=== PATIENT | female | born 1980 | race Caucasian/White ===

== ENCOUNTER 2016-11-20 06:37 | Emergency (ER) | payer MEDICAID ==
[~2016-11-20] VITALS: Ht 175.3 cm; Wt 61.1 kg
[~2016-11-20 06:37] MED LIST: HYDR-3533 PO; ZOFR4TAB3 SL; ZOLP10TA3 PO
[2016-11-20 06:47] VITALS: BP 115/56; PULSE 86; RESP 16; TEMP 97.6; O2SAT 99
[2016-11-20] MEDS ORDERED: SODIUM CHLOR 0.9% 1000 ML INJ 1,000 ML IV SCH (06:58)
[2016-11-20] MEDS ORDERED: SODIUM CHLORIDE 0.9% FLUSH 5 ML FLUSH IVF PRN (07:00)
[2016-11-20] MEDS ORDERED: ONDANSETRON HCL 4 MG/2 ML VIAL IVP ONE (07:00)
[2016-11-20] MEDS ORDERED: MORPHINE SULFATE 4 MG/ML INJ IV PUSH ONE (07:00)
[2016-11-20 07:21] LABS: AUTOMATED NEUTROPHIL # 5.1 TH/MM3 (1.8-7.7); BASOPHIL # 0.2 TH/MM3 (0-0.2); BASOPHIL % 3.1 % (0.0-2.0); EOSINOPHIL % 0.8 % (0.0-4.0); HEMO FLAGS DIFF FINAL; LYMPH % 7.1 % (9.0-44.0); LYMPHOCYTE # 0.4 TH/MM3 (1.0-4.8); MEAN CELL VOLUME 93.8 FL (80.0-100.0); MEAN CORPUSCULAR HEMOGLOBIN 32.3 PG (27.0-34.0); MEAN CORPUSCULAR HGB CONC 34.5 % (32.0-36.0); MONO % 5.6 % (0.0-8.0); NEUT % 83.4 % (16.0-70.0); PLATELET COUNT 254 TH/MM3 (150-450); RED BLOOD COUNT 3.94 MIL/MM3 (4.00-5.30); RED CELL DISTRIBUTION WIDTH 11.4 % (11.6-17.2)
--- NOTE | 2016-11-20 07:25 | PD ---
HPI . Abdominal pain Chief Complaint: Abdominal Pain Time Seen by Provider: 06:51 Travel History International Travel<30 days: No Contact w/Intl Traveler<30days: No Traveled to known affect area: No History of Present Illness HPI Patient presents with the acute onset of lower abdominal pain and bloating, onset about 5 PM last night. It is associated with nausea and vomiting. She states that her pain is increased with urination. She states that the pain is radiating into her legs. She reports a previous history of ovarian cyst and states that the pain is similar. Her medical history is significant for cervical cancer, previous right oophorectomy and previous left dermoid cyst. She states that she was seen by her produce service team member on about November 01 and had an ultrasound that showed a simple cyst of the left ovary. PFSH Past Medical History Asthma: Yes Anxiety: Yes Depression: Yes Cancer: Yes (Ovarian, cervical ) Diabetes: No Diminished Hearing: No Gastrointestinal Disorders: Yes (IBS) Musculoskeletal: Yes (Herniated disc/chronic back problems) Reproductive: Yes (Pulp removal) Immunizations Current: Yes Migraines: Yes Radiation Therapy: Yes Tetanus Vaccination: > 5 Years Influenza Vaccination: No ?: Unknown LMP: Stopped Depo Apr./no period yet : 2 Para: 1 : 1 Ovarian Cysts: Yes Dilation and Curettage (D&C): Yes Past Surgical History Gynecologic Surgery: Yes ((R) ovary/fallopian tube) Other Surgery: Yes (Breast augmentation/right lumpectomy ) Social History Alcohol Use: Yes Tobacco Use: No Substance Use: No Allergies-Medications (Allergen,Severity, Reaction): Coded Allergies: No Known Allergies (Verified , 11/20/16) Reported Meds & Prescriptions Reported Meds & Active Scripts Active Phenergan (Promethazine HCl) 25 Mg Tab 25 Mg PO Q6H PRN Ultram (Tramadol HCl) 50 Mg Tab 50 Mg PO Q4H PRN Ibuprofen 800 Mg Tab 800 Mg PO Q8H PRN Review of Systems Except as stated in HPI: all other systems reviewed are Neg General / Constitutional: Positive: Other (body feels like it's on fire) Gastrointestinal: Positive: Nausea, Vomiting, Abdominal Pain, No: Diarrhea Genitourinary: No: Urgency, Frequency, Dysuria (urination causes increased abdominal pain), Discharge Musculoskeletal: Positive: Myalgias Physical Exam Narrative GENERAL: Patient is lying on her left side in position. She appears to have pain with movement. SKIN: Warm and dry. HEAD: Atraumatic. Normocephalic. EYES: Pupils equal and round. ENT: No nasal bleeding or discharge. Mucous membranes pink and moist. NECK: Trachea midline. Neck is supple. CARDIOVASCULAR: Regular rate and rhythm. Heart sounds are normal. RESPIRATORY: No accessory muscle use. Lungs are clear with full air movement throughout. GASTROINTESTINAL: Abdomen soft. Diffuse lower abdominal tenderness. Nondistended. Bowel sounds are normal. MUSCULOSKELETAL: No obvious deformities. No edema. NEUROLOGICAL: Awake and alert. No obvious cranial nerve deficits. Motor grossly within normal limits. Normal speech. PSYCHIATRIC: Appropriate mood and affect; insight and judgment normal. Data Data Last Documented VS Vital Signs Date Time Temp Pulse Resp B/P Pulse Ox O2 Delivery O2 Flow Rate FiO2 11/20/16 10:15 16 11/20/16 10:13 80 98/50 98 Room Air 11/20/16 06:47 97.6 Orders Basic Metabolic Panel (Bmp) (11/20/16 06:58) Complete Blood Count With Diff (11/20/16 06:58) Urinalysis - C+S If Indicated (11/20/16 06:58) Ct Abd/Pel W Iv Contrast(Rout) (11/20/16 06:58) Iv Access Insert/Monitor (11/20/16 06:58) Morphine Inj (Morphine Inj) (11/20/16 07:00) Ondansetron Inj (Zofran Inj) (11/20/16 07:00) Sodium Chlor 0.9% 1000 Ml Inj (Ns 1000 M (11/20/16 06:58) Sodium Chloride 0.9% Flush (Ns Flush) (11/20/16 07:00) Ed Urine Pregnancytest Poc (11/20/16 06:58) Us Pelvis Comp W Dop Transvag (11/20/16 07:04) Iohexol 350 Inj (Omnipaque 350 Inj) (11/20/16 08:16) Protein Corrected Calcium(Pcc) (11/20/16 07:45) Ketorolac Inj (Toradol Inj) (11/20/16 08:45) Morphine Inj (Morphine Inj) (11/20/16 08:45) Labs Laboratory Tests Test 11/20/16 11/20/1611/20/17 07:00 07:39 07:45 White Blood Count 6.0 TH/MM3 Red Blood Count 3.94 MIL/MM3 Hemoglobin 12.8 GM/DL Hematocrit 37.0 % Mean Corpuscular Volume 93.8 FL Mean Corpuscular Hemoglobin 32.3 PG Mean Corpuscular Hemoglobin 34.5 % Concent Red Cell Distribution Width 11.4 % Platelet Count 254 TH/MM3 Mean Platelet Volume 7.7 FL Neutrophils (%) (Auto) 83.4 % Lymphocytes (%) (Auto) 7.1 % Monocytes (%) (Auto) 5.6 % Eosinophils (%) (Auto) 0.8 % Basophils (%) (Auto) 3.1 % Neutrophils # (Auto) 5.1 TH/MM3 Lymphocytes # (Auto) 0.4 TH/MM3 Monocytes # (Auto) 0.3 TH/MM3 Eosinophils # (Auto) 0.0 TH/MM3 Basophils # (Auto) 0.2 TH/MM3 CBC Comment DIFF FINAL Differential Comment Urine Collection Type CLEAN CATCH Urine Color YELLOW Urine Turbidity CLEAR Urine pH 6.0 Urine Specific [place] 1.019 Urine Protein NEG mg/dL Urine Glucose (UA) NEG mg/dL Urine Ketones NEG mg/dL Urine Occult Blood SMALL Urine Nitrite NEG Urine Bilirubin NEG Urine Leukocyte Esterase NEG Urine RBC 0-3 /hpf Microscopic Urinalysis Comment CULT NOT INDICATED Sodium Level 144 MEQ/L Potassium Level 3.1 MEQ/L Chloride Level 111 MEQ/L Carbon Dioxide Level 24.0 MEQ/L Anion Gap 9 MEQ/L Blood Urea Nitrogen 14 MG/DL Creatinine 0.68 MG/DL Estimat Glomerular Filtration 98 ML/MIN Rate Random Glucose 85 MG/DL Calcium Level 7.2 MG/DL Protein Corrected Calcium 7.9 MG/DL Total Protein 5.7 GM/DL [facility] Medical Decision Making Medical Screen Exam Complete: Yes Emergency Medical Condition: Yes Medical Record Reviewed: Yes (patient was most recently seen here in June with similar complaints. She had an ultrasound done at that time that showed an ovarian cyst.) Differential Diagnosis Differential diagnosis of pelvic pain includes but is not limited to UTI, PID, ectopic , spontaneous AB, constipation, viral illness Narrative Course Patient presents with lower abdominal pain and bloating associated with some nausea and vomiting. I have ordered a CT to evaluate her urinary system and an ultrasound to evaluate her pelvic organs. CBC & BMP Diagram 11/20/16 07:00 11/20/16 07:45 UA shows small blood. 8:45 AM Patient reports improved but continued pain. Last Impressions Abdomen/Pelvis/Transvag US 11/20/16 0704 Signed Impressions: Service Date/Time: Sunday, November 20, 2016 07:38 - CONCLUSION: Stable pelvic ultrasound demonstrating a small fundal uterine leiomyoma and a complex left adnexal cyst previously described as a dermoid. No acute abnormalities noted. Gianni Godinez MD Abdomen/Pelvis CT 11/20/16 0658 Signed Impressions: Service Date/Time: Sunday, November 20, 2016 08:08 - CONCLUSION: 1. No acute inflammatory process. 2. Stable complex cystic structure left ovary may be related to dermoid 3. Stable hepatic low-density likely benign cyst or hemangioma. Bravo Yan MD Diagnosis Primary Impression: Pelvic pain Additional Impressions: Vomiting Qualified Code: R11.2 - Non-intractable vomiting with nausea, unspecified vomiting type Left ovarian cyst Additional Instructions: Follow-up with your produce service team member in a couple of days. Med/Other Pt SpecificInfo: Prescription(s) given Scripts Promethazine (Phenergan)25 Mg Tab25 Mg PO Q6H PRN (Nausea/Vomiting) #12 TAB Ref 0 Prov:Yoselin Cortes MD 11/20/16 Tramadol (Ultram)50 Mg Tab50 Mg PO Q4H PRN (PAIN) #12 TAB Ref 0 Prov:Yoselin Cortes MD 11/20/16 Ibuprofen 800 Mg Iyl246 Mg PO Q8H PRN (pain) #30 TAB Ref 0 Prov:Yoselin Cortes MD 11/20/16 Disposition: 01 DISCHARGE HOME Condition: Stable Yoselin Cortes MD Nov 20, 2016 07:25
[2016-11-20 07:43] LABS: BLOOD, URINE SMALL (NEG); GLUCOSE,URINE NEG (NEG); KETONE, URINE NEG (NEG); NITRITE,URINE NEG (NEG)
[2016-11-20 07:49] LABS: COMMENT (UR) CULT NOT INDICATED; CULTURE IF INDICATED CULT NOT INDICATED; METHOD OF COLLECTION CLEAN CATCH; RBC, URINE 0-3 /hpf (0-3); URINE COLOR YELLOW (YELLW/STRAW)
[2016-11-20 08:14] LABS: POTASSIUM 3.1 MEQ/L (3.5-5.1)
[2016-11-20] MEDS ORDERED: IOHEXOL 350 MG/ML 10 ML VIAL (for RAD DIAG) IV ONE (08:16)
[2016-11-20 08:41] LABS: CALCIUM-PROTEIN CORRECTED 7.9 MG/DL (8.5-10.1)
[2016-11-20] MEDS ORDERED: KETOROLAC TROMETHAMINE 30 MG/ML (IVP) VIAL IVP ONE (08:45)
[2016-11-20] MEDS ORDERED: MORPHINE SULFATE 4 MG/ML INJ IV ONE (08:45)
[2016-11-20 09:05] VITALS: BP 98/51; PULSE 78; RESP 16; O2SAT 100
--- NOTE | 2016-11-20 09:23 | RADHPO ---
EXAM DATE/TIME: 11/20/2016 08:08 [facility] COMPARISON: CT ABDOMEN & PELVIS W CONTRAST, January 02, 2016, 17:09. INDICATIONS : Acute onset of lower abdominal pain and bloating with nausea and vomiting. IV CONTRAST: 75 cc Omnipaque 350 (iohexol) IV ORAL CONTRAST: No oral contrast ingested. RADIATION DOSE: 6.02 CTDIvol (mGy) MEDICAL HISTORY : Carcinoma, ovarian. Cervical cancer. Left ovarian dermoid cyst. Polycystic ovarian disease. SURGICAL HISTORY : Right oopherectomy. Orthopedic surgery. ENCOUNTER: Initial ACUITY: 1 day PAIN SCALE: 6/10 LOCATION: Bilateral lower quadrant TECHNIQUE: Volumetric scanning of the abdomen and pelvis was performed. Using automated exposure control and ad justment of the mA and/or kV according to patient size, radiation dose was kept as low as reasonably achievable to obtain optimal diagnostic quality images. FINDINGS: LOWER LUNGS: The visualized lower lungs are clear. LIVER: Homogeneous density without lesion. There is no dilation of the biliary tree. No calcified gallston es. 1 cm low-density towards the dome is stable and likely benign. SPLEEN: Normal size without lesion. PANCREAS: Within normal limits. KIDNEYS: Normal in size and shape. There is no mass, stone or hydronephrosis. ADRENAL GLANDS: Within normal limits. VASCULAR: There is no aortic aneurysm. BOWEL/MESENTERY: The stomach, small bowel, and colon demonstrate no acute abnormality. There is no free intraperitone al air or fluid. ABDOMINAL WALL: Within normal limits. RETROPERITONEUM: There is no lymphadenopathy. BLADDER: No wall thickening or mass. REPRODUCTIVE: Complex cyst left ovary again seen and stable may be related to a dermoid INGUINAL: There is no lymphadenopathy or hernia. MUSCULOSKELETAL: Within normal limits for patient age. CONCLUSION: 1. No acute inflammatory process. 2. Stable complex cystic structure left ovary may be related to dermoid 3. Stable hepatic low-density likely benign cyst or hemangioma. Bravo Yan MD on November 20, 2016 at 9:10 Board Certified Radiologist. This report was verified electronically.
--- NOTE | 2016-11-20 09:40 | RADHPO ---
EXAM DATE/TIME: 11/20/2016 07:38 [facility] COMPARISON: US PELVIS,COMP,W DOPLR, TRANS VAG, June 19, 2016, 16:00. INDICATIONS : Pelvic pain. MEDICAL HISTORY : Irritable bowel syndrome. Dermoid ovarian cysts. Chronic back pain. Herniated discs. Cervical and ov sandrita cancer. SURGICAL HISTORY : Right salipingo-oophorectomy. D&C. Breast augmentation. Right lumpectomy ENCOUNTER: Initial ACUITY: 1 day PAIN SCORE: 9/10 LOCATION: Bilateral pelvis MEASUREMENTS: UTERUS: 6.9 x 3.5 x 4.2 cm ENDOMETRIAL STRIPE: 2 mm RIGHT OVARY: Surgically removed. LEFT OVARY: 4.3 x 2.2 x 4.0 cm FINDINGS: UTERUS: The uterus is stable appearance again demonstrating a small fundal fibroid currently measuring 17 mm. Endometrial stripe remains normal in thickness. RIGHT OVARY: Surgically removed. LEFT OVARY: Complex thickwalled cyst with a large mural nodule is again identified and is stable compared to prio r study. Small follicular cysts are present throughout the left ovary as well. There is normal blood flow to the left ovary. MISCELLANEOUS: Trace fluid is identified in the pelvis. CONCLUSION: Stable pelvic ultrasound demonstrating a small fundal uterine leiomyoma and a complex left adnexal cy st previously described as a dermoid. No acute abnormalities noted. Gianni Godinez MD on November 20, 2016 at 9:26 Board Certified Radiologist. This report was verified electronically.
[2016-11-20] MEDS ORDERED: IBUP800T23 PO (09:47)
[2016-11-20] MEDS ORDERED: ULTR50TA5 PO (09:47)
[2016-11-20] MEDS ORDERED: PROM25TA5 PO (09:47)
[2016-11-20 10:13] VITALS: BP 98/50; PULSE 80; RESP 16; O2SAT 98
[2016-11-20 10:15] VITALS: RESP 16
== END 2016-11-20 10:16 | disposition home or self-care (01) ==
LOC: PHED 06:37
DX: R10.2 Pelvic and perineal pain (principal); N83.209 Unspecified ovarian cyst, unspecified side; J45.909 Unspecified asthma, uncomplicated; K58.9 Irritable bowel syndrome, unspecified; R11.2 Nausea with vomiting, unspecified
CPT/HCPCS: 74177; 76830; 76856; 80048; 81001; 84155; 84703; 85025; 93975; 96361; 96374; 96375; 96376; 99284; J1885; J2270; J2405; J7030; Q9967

== ENCOUNTER 2017-04-04 14:19 | Emergency (ER) | payer MEDICAID ==
[~2017-04-04 14:19] MED LIST changes: -HYDR-3533 PO; +IBUP800T23 PO; +PROM25TA5 PO; +ULTR50TA5 PO; -ZOFR4TAB3 SL; -ZOLP10TA3 PO
[2017-04-04 14:24] VITALS: BP 115/63; PULSE 65; RESP 18; TEMP 98.2
[2017-04-04] MEDS ORDERED: AMBI10TA PO (14:32)
[2017-04-04] MEDS ORDERED: SODIUM CHLORIDE 0.9% FLUSH 10 ML FLUSH IVF PRN (15:00)
[2017-04-04] MEDS ORDERED: ASPIRIN 81 MG CHEW TAB PO ONE (15:00)
[2017-04-04] MEDS ORDERED: LORazepam 2 MG/ML VIAL IV PUSH SCH (15:00)
--- NOTE | 2017-04-04 15:07 | PD ---
HPI . Chest pain Chief Complaint: Chest Pain Time Seen by Provider: 14:34 Travel History International Travel<30 days: No Contact w/Intl Traveler<30days: No Traveled to known affect area: No History of Present Illness HPI This patient presents with the chief complaint of chest pain shortness of breath. Onset was 2-3 days ago. She states that it started as a sharp pain under her left breast has continued as a pressure-like sensation. She states that she feels like she can't catch a deep breath. She reports that her symptoms are exacerbated by exertion. No relieving factor. She rates her current pain level at 5/10. In addition, the patient is complaining with fatigue and diffuse myalgias. 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 She reports a low-grade temperature several days ago. PFSH Past Medical History Asthma: Yes Anxiety: Yes Depression: Yes Cancer: Yes (Ovarian, cervical ) Diabetes: No Diminished Hearing: No Gastrointestinal Disorders: Yes (IBS) Musculoskeletal: Yes (Herniated disc/chronic back problems) Reproductive: Yes (Pulp removal) Immunizations Current: Yes Migraines: Yes Radiation Therapy: Yes Influenza Vaccination: No ?: Not LMP: 04/02/2017 : 2 Para: 1 : 1 Ovarian Cysts: Yes Dilation and Curettage (D&C): Yes Past Surgical History Gynecologic Surgery: Yes ((R) ovary/fallopian tube) Other Surgery: Yes (Breast augmentation/right lumpectomy ) Social History Alcohol Use: Yes Tobacco Use: No Substance Use: No Allergies-Medications (Allergen,Severity, Reaction): Coded Allergies: No Known Allergies (Verified , 04/04/17) Reported Meds & Prescriptions Reported Meds & Active Scripts Active Ibuprofen 800 Mg Tab 800 Mg PO Q8H PRN Reported Ambien (Zolpidem Tartrate) 10 Mg Tab 10 Mg PO HS PRN Review of Systems Except as stated in HPI: all other systems reviewed are Neg General / Constitutional: Positive: Fever (several days ago) HENT: Positive: Headaches Cardiovascular: Positive: Chest Pain or Discomfort Respiratory: Positive: Shortness of Breath Gastrointestinal: No: Nausea, Vomiting, Diarrhea, Abdominal Pain Genitourinary: No: Urgency, Frequency, Dysuria Musculoskeletal: Positive: Myalgias, Limited ROM Neurologic: Positive: Weakness Physical Exam Narrative GENERAL: Awake and alert and in no acute distress. SKIN: Warm and dry. HEAD: Atraumatic. Normocephalic. EYES: Pupils equal and round. Extraocular movements are intact. ENT: No nasal bleeding or discharge. Mucous membranes pink and moist. NECK: Trachea midline. Neck is supple. CARDIOVASCULAR: Regular rate and rhythm. Heart sounds are normal. RESPIRATORY: No accessory muscle use. Lungs are clear with full air movement throughout. Chest wall is nontender to palpation. GASTROINTESTINAL: Abdomen soft, non-tender, nondistended. MUSCULOSKELETAL: No obvious deformities. No edema. She reports diffuse tenderness to palpation in her muscles. NEUROLOGICAL: Awake and alert. No obvious cranial nerve deficits. Motor grossly within normal limits. Normal speech. PSYCHIATRIC: Appropriate mood and affect; insight and judgment normal. Data Data Last Documented VS Vital Signs Date Time Temp Pulse Resp B/P Pulse Ox O2 Delivery O2 Flow Rate FiO2 04/04/17 16:43 88 18 95/65 98 04/04/17 15:16 Room Air 04/04/17 14:24 98.2 Orders Electrocardiogram (04/04/17 14:29) Basic Metabolic Panel (Bmp) (04/04/17 14:54) Ckmb (Isoenzyme) Profile (04/04/17 14:54) Complete Blood Count With Diff (04/04/17 14:54) D-Dimer (04/04/17 14:54) Magnesium (Mg) (04/04/17 14:54) Prothrombin Time / Inr (Pt) (04/04/17 14:54) Act Partial Throm Time (Ptt) (04/04/17 14:54) Troponin I (04/04/17 14:54) Chest, Single Ap (04/04/17 14:54) Ecg Monitoring (04/04/17 14:54) Iv Access Insert/Monitor (04/04/17 14:54) Oximetry (04/04/17 14:54) Aspirin Chew (Aspirin Chew) (04/04/17 15:00) Sodium Chloride 0.9% Flush (Ns Flush) (04/04/17 15:00) Lorazepam Inj (Ativan Inj) (04/04/17 15:00) Prochlorperazine Inj (Compazine Inj) (04/04/17 15:45) Diphenhydramine Inj (Benadryl Inj) (04/04/17 15:45) CKMB (04/04/17 15:10) CKMB% (04/04/17 15:10) Labs Laboratory Tests Test 04/04/17 15:10 White Blood Count 7.6 TH/MM3 Red Blood Count 4.08 MIL/MM3 Hemoglobin 13.2 GM/DL Hematocrit 39.2 % Mean Corpuscular Volume 96.1 FL Mean Corpuscular Hemoglobin 32.3 PG Mean Corpuscular Hemoglobin 33.6 % Concent Red Cell Distribution Width 11.7 % Platelet Count 302 TH/MM3 Mean Platelet Volume 7.6 FL Neutrophils (%) (Auto) 53.2 % Lymphocytes (%) (Auto) 36.1 % Monocytes (%) (Auto) 7.8 % Eosinophils (%) (Auto) 2.1 % Basophils (%) (Auto) 0.8 % Neutrophils # (Auto) 4.0 TH/MM3 Lymphocytes # (Auto) 2.7 TH/MM3 Monocytes # (Auto) 0.6 TH/MM3 Eosinophils # (Auto) 0.2 TH/MM3 Basophils # (Auto) 0.1 TH/MM3 CBC Comment DIFF FINAL Differential Comment Prothrombin Time 13.1 SEC Prothromb Time International 1.2 RATIO Ratio Activated Partial 27.1 SEC Thromboplast Time D-Dimer Quantitative (PE/DVT) LESS THAN 0.19 MG/L FEU Sodium Level 140 MEQ/L Potassium Level 4.0 MEQ/L Chloride Level 105 MEQ/L Carbon Dioxide Level 31.3 MEQ/L Anion Gap 4 MEQ/L Blood Urea Nitrogen 21 MG/DL Creatinine 0.89 MG/DL Estimat Glomerular Filtration 72 ML/MIN Rate Random Glucose 76 MG/DL Calcium Level 8.7 MG/DL Magnesium Level 2.2 MG/DL Total Creatine Kinase 225 U/L Creatine Kinase MB 1.2 NG/ML Creatine Kinase MB % 0.5 % Troponin I LESS THAN 0.02 NG/ML MDM Medical Decision Making Medical Screen Exam Complete: Yes Emergency Medical Condition: Yes Medical Record Reviewed: Yes (the patient's main problem has been [employer]. She has been seen here before for anxiety and panic attacks.) Interpretation(s) EKG shows a sinus rhythm with no ST segment elevation or depression. Differential Diagnosis Differential diagnosis of chest pain includes but is not limited to musculoskeletal pain, pulmonary embolism, acute coronary syndrome, pneumonia, pleurisy Narrative Course This patient presents with the chief complaint of chest pain or shortness of breath. She also has myalgias and states that she had a fever several days ago. The onset of her chest pain was at least 2 days ago. Therefore, if she were having an acute coronary event, you would expect an elevation in her CK or troponin. I do not believe that repeat testing is necessary. Last Impressions Chest X-Ray 04/04/17 1454 Signed Impressions: Service Date/Time: , April 04, 2017 15:02 - CONCLUSION: Normal examination. Brando Patel MD CBC & BMP Diagram 04/04/17 15:10 Cardiac enzymes are negative D-dimer less than 0.19 Care was turned over to Dr. Santana pending workup. Diagnosis Primary Impression: Chest pain Qualified Code: R07.9 - Chest pain, unspecified type Additional Impressions: Shortness of breath Myalgia Headache Qualified Code: R51 - Acute nonintractable headache, unspecified headache type Disposition: DISCHARGE HOME Condition: Stable Yoselin Cortes MD Apr 04, 2017 15:06
--- NOTE | 2017-04-04 15:14 | RADRPT ---
EXAM DATE/TIME: 04/04/2017 15:02 [facility] COMPARISON: CHEST SINGLE AP, April 06, 2016, 17:57. INDICATIONS : Left side chest pain and tightness under left breast. MEDICAL HISTORY : Irritable bowel syndrome. Dermoid ovarian cysts. Chronic back pain. Herniated discs. Cervical and ova kori cancer. SURGICAL HISTORY : Right salipingo-oophorectomy. D&C. Breast augmentation. Right lumpectomy ENCOUNTER: Initial ACUITY: 3 days PAIN SCORE: 2/10 LOCATION: Bilateral chest FINDINGS: A single view of the chest demonstrates the lungs to be symmetrically aerated without evidence of mas s, infiltrate or effusion. The cardiomediastinal contours are unremarkable. Osseous structures are intact. CONCLUSION: Normal examination. Brando Patel MD on April 04, 2017 at 15:12 Board Certified Radiologist. This report was verified electronically.
[2017-04-04 15:16] VITALS: BP 111/64; PULSE 57; RESP 18; O2SAT 100
[2017-04-04 15:29] LABS: BASOPHIL # 0.1 TH/MM3 (0-0.2); BASOPHIL % 0.8 % (0.0-2.0); EOSINOPHIL # 0.2 TH/MM3 (0-0.4); EOSINOPHIL % 2.1 % (0.0-4.0); HEMATOCRIT 39.2 % (35.0-46.0); LYMPH % 36.1 % (9.0-44.0); LYMPHOCYTE # 2.7 TH/MM3 (1.0-4.8); MEAN CELL VOLUME 96.1 FL (80.0-100.0); MEAN CORPUSCULAR HEMOGLOBIN 32.3 PG (27.0-34.0); MEAN CORPUSCULAR HGB CONC 33.6 % (32.0-36.0); MONO % 7.8 % (0.0-8.0); NEUT % 53.2 % (16.0-70.0); PLATELET COUNT 302 TH/MM3 (150-450); RED BLOOD COUNT 4.08 MIL/MM3 (4.00-5.30); RED CELL DISTRIBUTION WIDTH 11.7 % (11.6-17.2); WHITE BLOOD COUNT 7.6 TH/MM3 (4.0-11.0)
[2017-04-04 15:34] LABS: HEMO FLAGS DIFF FINAL
[2017-04-04 15:38] LABS: CHLORIDE 105 MEQ/L (98-107); SODIUM (NA) 140 MEQ/L (136-145)
[2017-04-04 15:41] LABS: ANION GAP 4 MEQ/L (5-15); BICARBONATE 31.3 MEQ/L (21.0-32.0); BLOOD UREA NITROGEN 21 MG/DL (7-18); MAGNESIUM 2.2 MG/DL (1.5-2.5)
[2017-04-04 15:44] LABS: GLOMERULAR FILTRATION RATE 72 ML/MIN (>89)
[2017-04-04] MEDS ORDERED: PROCHLORPERAZINE INJ 10 MG/2 ML VIAL IV PUSH ONE (15:45)
[2017-04-04] MEDS ORDERED: diphenhydrAMINE HCL 50 MG/ML VIAL IV PUSH ONE (15:45)
[2017-04-04 15:48] LABS: CREATINE KINASE 225 U/L (26-192)
[2017-04-04 16:00] LABS: CKMB 1.2 NG/ML (0.5-3.6)
[2017-04-04 16:22] LABS: APTT (PATIENT) 27.1 SEC (24.3-30.1); INTERNATIONAL NORMALIZED RATIO 1.2 RATIO; PROTHROMBIN TIME - PATIENT 13.1 SEC (9.8-11.6)
--- NOTE | 2017-04-04 16:35 | PD ---
Physical Exam Date Seen by Provider: Apr 04, 2017 Time Seen by Provider: 16:32 Narrative 26-year-old female had presented for evaluation of chest pain. Pain she is having is been going on for couple of days. His left-sided pain which is aggravated by breathing. She feels short of breath at times. She has had a history of anxiety or pain in the past. Dr. Cortes has ordered a full evaluation. EKG showed normal sinus rhythm. Troponin is normal. Chest x-ray negative. D-dimer is normal. Patient is not having pain now this pain is very atypical for any cardiac illness. She does not have risk factors. She is stable for discharge. This is atypical chest pain. Possibly related to anxiety Data Data Last Documented VS Vital Signs Date Time Temp Pulse Resp B/P Pulse Ox O2 Delivery O2 Flow Rate FiO2 04/04/17 15:16 57 18 111/64 100 Room Air 04/04/17 14:24 98.2 Orders Electrocardiogram (04/04/17 14:29) Basic Metabolic Panel (Bmp) (04/04/17 14:54) Ckmb (Isoenzyme) Profile (04/04/17 14:54) Complete Blood Count With Diff (04/04/17 14:54) D-Dimer (04/04/17 14:54) Magnesium (Mg) (04/04/17 14:54) Prothrombin Time / Inr (Pt) (04/04/17 14:54) Act Partial Throm Time (Ptt) (04/04/17 14:54) Troponin I (04/04/17 14:54) Chest, Single Ap (04/04/17 14:54) Ecg Monitoring (04/04/17 14:54) Iv Access Insert/Monitor (04/04/17 14:54) Oximetry (04/04/17 14:54) Aspirin Chew (Aspirin Chew) (04/04/17 15:00) Sodium Chloride 0.9% Flush (Ns Flush) (04/04/17 15:00) Lorazepam Inj (Ativan Inj) (04/04/17 15:00) Prochlorperazine Inj (Compazine Inj) (04/04/17 15:45) Diphenhydramine Inj (Benadryl Inj) (04/04/17 15:45) CKMB (04/04/17 15:10) CKMB% (04/04/17 15:10) Labs Laboratory Tests Test 04/04/17 15:10 White Blood Count 7.6 TH/MM3 Red Blood Count 4.08 MIL/MM3 Hemoglobin 13.2 GM/DL Hematocrit 39.2 % Mean Corpuscular Volume 96.1 FL Mean Corpuscular Hemoglobin 32.3 PG Mean Corpuscular Hemoglobin 33.6 % Concent Red Cell Distribution Width 11.7 % Platelet Count 302 TH/MM3 Mean Platelet Volume 7.6 FL Neutrophils (%) (Auto) 53.2 % Lymphocytes (%) (Auto) 36.1 % Monocytes (%) (Auto) 7.8 % Eosinophils (%) (Auto) 2.1 % Basophils (%) (Auto) 0.8 % Neutrophils # (Auto) 4.0 TH/MM3 Lymphocytes # (Auto) 2.7 TH/MM3 Monocytes # (Auto) 0.6 TH/MM3 Eosinophils # (Auto) 0.2 TH/MM3 Basophils # (Auto) 0.1 TH/MM3 CBC Comment DIFF FINAL Differential Comment Prothrombin Time 13.1 SEC Prothromb Time International 1.2 RATIO Ratio Activated Partial 27.1 SEC Thromboplast Time D-Dimer Quantitative (PE/DVT) LESS THAN 0.19 MG/L FEU Sodium Level 140 MEQ/L Potassium Level 4.0 MEQ/L Chloride Level 105 MEQ/L Carbon Dioxide Level 31.3 MEQ/L Anion Gap 4 MEQ/L Blood Urea Nitrogen 21 MG/DL Creatinine 0.89 MG/DL Estimat Glomerular Filtration 72 ML/MIN Rate Random Glucose 76 MG/DL Calcium Level 8.7 MG/DL Magnesium Level 2.2 MG/DL Total Creatine Kinase 225 U/L Creatine Kinase MB 1.2 NG/ML Creatine Kinase MB % 0.5 % Troponin I LESS THAN 0.02 NG/ML [facility] Medical Record Reviewed: No Supervised Visit with CON: No Differential Diagnosis Differential includes anxiety, viral syndrome, coronary artery disease pulmonary embolus Narrative Course Chest x-ray negative. D-dimer normal deep troponin normal Diagnosis Primary Impression: Chest pain Qualified Code: R07.9 - Chest pain, unspecified type Additional Impressions: Myalgia Shortness of breath Referrals: MERRITT RESENDIZ D.O. (PCP) call for appointment Patient Instructions: General Instructions, Chest Pain (ED), Dyspnea (ED), Musculoskeletal Pain (ED) Departure Forms: Tests/Procedures Disposition: DISCHARGE HOME Condition: Stable Nasir Headley MD Apr 04, 2017 16:35
[2017-04-04 16:43] VITALS: BP 95/65
--- NOTE | 2017-04-05 14:56 | EKG ---
Date Performed: 04/04/2017 Time Performed: 14:29:39 PTAGE: 36 years EKG: Sinus rhythm NORMAL ECG PREVIOUS TRACING : 04/06/2016 17.59 Compared to prior tracing no significant change DOCTOR: Gavino Chew Interpretating Date/Time 04/05/2017 14:52:55
== END 2017-04-04 16:52 | disposition home or self-care (01) ==
LOC: PHED 14:19
DX: R07.9 Chest pain, unspecified (principal); R06.02 Shortness of breath; M79.1 Myalgia; R51 Headache; R53.1 Weakness; R50.9 Fever, unspecified
CPT/HCPCS: 71010; 80048; 82550; 82552; 83735; 84484; 85025; 85379; 85610; 85730; 93005; 96374; 96375; 99285; J0780; J1200; J2060